=== PATIENT | male | born 1975 | race African-American/Black ===

== ENCOUNTER 2019-02-28 22:09 | Emergency (ER) | payer OTHER ==
[~2019-02-28] VITALS: Ht 167.6 cm; Wt 72.6 kg
[2019-02-28] MEDS ORDERED: BACLOFEN5 MG PO (22:33)
[2019-02-28] MEDS ORDERED: QUETIAPINE FUM100 MG PO ×2 (22:39→22:46)
[2019-02-28] MEDS ORDERED: LIORESAL 10 MG10 MG PO (22:41)
[2019-02-28 22:42] LABS: ABSOLUTE NEUTROPHILS 5.9 thou/uL (1.4-8.2); BASOPHILS 0.6 % (0.0-2.0); EOSINOPHILS 0.7 % (0.0-3.0); HEMOGLOBIN 12.9 gm/dL (14.0-18.0); MCH 27.6 pg (26.0-34.0); MCV 81.1 fL (80.0-100.0); MONOCYTES 9.1 % (1.0-8.0); PLATELET COUNT 233 thou/uL (150-400); POLYS 65.6 % (36.0-66.0); RBC 4.68 mil/uL (4.50-6.00); RDW 15.9 % (10.5-14.5); WBC 8.9 thou/uL (4.0-11.0)
[2019-02-28] MEDS ORDERED: PROZAC20 MG PO (22:42)
[2019-02-28] MEDS ORDERED: IBUPROFEN 400400 M2 PO (22:46)
[2019-02-28 22:51] LABS: ANION GAP 12 mmol/L (7-16); BUN 14 mg/dL (7-18); CALCIUM 8.8 mg/dL (8.5-10.1); CHLORIDE 102 mmol/L (98-107); CO2 24 mmol/L (21-32); CREATININE 1.3 mg/dL (0.7-1.3); GLUCOSE 93 mg/dL (74-106); SODIUM 138 mmol/L (136-145)
[2019-02-28 22:59] LABS: ALBUMIN 3.4 g/dL (3.4-5.0); SGOT 42 U/L (15-37); SGPT 54 U/L (30-65); TOTAL BILIRUBIN 0.7 mg/dL (<0.1-1.0); TOTAL PROTEIN 7.5 g/dL (6.4-8.2); TROPONIN-I <0.06 ng/mL (<0.06)
[2019-03-01] MEDS ORDERED: IBUPROFEN 400400 M2 PO (01:08)
[2019-03-01 01:18] VITALS: BP 131/82
--- NOTE | 2019-03-01 07:39 | EKG ---
[place] [address] [address] [facility] [employer] [address] ELECTROCARDIOGRAM REPORT Name: CTMIKO GABRIEL Room #: DEP [facility]ITALRicardo[facility] [id number] ������������������ Admission: 02/28/19 ������������������ Attend Phys: Discharge: 03/01/19 ������������������ Date of : 79 Report #: [id number] ����������������������������������������������������������������� [id number] THIS REPORT FOR: //name// [facility] ED Test Date: 2019-02-28 Test Time: 22:27:10 Pat Name: MIKO FOFANA Department: Room: Gender: Call Taker: [place] : 1975 Requested By: Honorio Sanches Order Number: [id number] MD: Hugh Mace Measurements Intervals [place] Rate: 88 P: 47 [place]: 169 QRS: 41 QRSD: 84 T: 45 QT: 333 QTc: 403 Interpretive Statements Sinus rhythm Normal tracing Compared to ECG 02/28/2006 01:35:59 No significant changes Electronically Signed On 03-01-2019 7:39:33 CDT by Hugh Mace [email or web address] ��������������������������������������������� <ELECTRONICALLY SIGNED> ���������������������������������������� By: Hugh Mace MD, [facility] ��������������������������������������������� 03/01/19 [id number] Hugh Mace MD, FACC /EPI
== END 2019-03-01 01:39 | disposition home or self-care (01) ==
LOC: ER 22:09
PROVIDERS: Physician Assistant
DX: R07.89 Other chest pain (principal); F17.210 Nicotine dependence, cigarettes, uncomplicated; F32.9 Major depressive disorder, single episode, unspecified

== ENCOUNTER 2019-07-21 15:23 | Emergency (ER) | payer OTHER ==
[~2019-07-21] VITALS: Ht 182.9 cm; Wt 78.5 kg
[~2019-07-21 15:23] MED LIST: BACLOFEN5 MG PO; IBUPROFEN 400400 M2 PO; LIORESAL 10 MG10 MG PO; PROZAC20 MG PO; QUETIAPINE FUM100 MG PO
[2019-07-21] MEDS ORDERED: SEROQUEL 25 MG25 MG PO (15:28)
[2019-07-21] MEDS ORDERED: AMOXICILLIN 50500 MG PO (16:13)
[2019-07-21] MEDS ORDERED: TRAMADOL 50 MG50 MG PO (16:13)
[2019-07-21 16:32] VITALS: BP 130/79
== END 2019-07-21 16:34 | disposition home or self-care (01) ==
LOC: ER 15:23
DX: K02.9 Dental caries, unspecified (principal); F32.9 Major depressive disorder, single episode, unspecified; F17.210 Nicotine dependence, cigarettes, uncomplicated